=== PATIENT | male | born 1980 | race Caucasian/White ===

== ENCOUNTER 2023-06-23 12:31 | Emergency (ER) | payer MEDICAID, SELFPAY ==
[2023-06-23 12:32] VITALS: BP 115/71; PULSE 85; RESP 17; TEMP 36; O2SAT 100; BMI 30.1
--- NOTE | 2023-06-23 12:56 | RAD_ITS ---
STUDY: X-RAY CHEST REASON FOR EXAM: Male, 42 years old. chest pain TECHNIQUE: Single AP portable view of the chest. COMPARISON: None. FINDINGS: The lungs are clear and expanded. There is no demonstrated pleural abnormality. Normal size heart. Normal mediastinum and saad. Normal visualized pulmonary arteries. Normal visualized aortic arch and descending thoracic aorta. Normal visualized thoracic spine. Normal visualized ribs, clavicles, and shoulders. There is no demonstrated abnormality of the visualized soft tissue structures of the upper abdomen. RAD/Chest 1 View (Portable) IMPRESSION: Normal x-ray examination of the chest. Electronically Signed: Gerardo Persaud MD at 14:21 EST ,
--- NOTE | 2023-06-23 12:56 | EKG12_ITS ---
Test Reason : cp Blood Pressure : / mmHG Vent. Rate : 074 BPM Atrial Rate : 074 BPM P-R Int : 124 ms QRS Dur : 094 ms QT Int : 370 ms P-R-T Axes : 050 051 044 degrees QTc Int : 410 ms Normal sinus rhythm Normal ECG Confirmed by SANDRA MORROW MD ([id number]), market editor DERRICK PICKENS ([id number]) on 06/25/2023 1:16:54 PM Referred By: Margarita Confirmed By:SANDRA MORROW MD
--- NOTE | 2023-06-23 12:58 | EDS_ITS ---
HPI <MAE Brown - Last Filed: 06/23/23 16:10> History of Present Illness Chief Complaint: Chest Pain Narrative Narrative: Patient presenting today with midsternal chest pressure that started this morning. He reports that he has felt short of breath intermittently over the past few weeks and felt short of breath this morning. Nothing seems to worsen the symptoms. He reports that now his symptoms seem to be improving. He did feel little bit nauseous this morning. He denies a cardiac history but reports CAD hx in his father. He reports a history of daily marijuana use and recent methamphetamine use which was injected 3 weeks ago. He denies any recent meth use. He denies any fever, chills, abdominal pain, history of blood clots, recent surgery/procedures/travel/immobilization. PFSH <MAE Brown - Last Filed: 06/23/23 16:10> PFSH Allergy/AdvReac Type Severity Reaction Status Date / Time No Known Allergies Allergy Verified 06/23/23 12:34 Social History Smoking Status: Current every day smoker tobacco type: cigarettes ROS <MAE Brown - Last Filed: 06/23/23 16:10> ROS ED Constitutional Constitutional ED: Denies chills or fever(s) Cardiovascular Cardiovascular: Reports chest pain; Denies palpitations or racing heartbeat Respiratory/Chest Respiratory/Chest: Reports dyspnea; Denies cough or tachypnea Gastrointestinal Gastrointestinal: Reports nausea; Denies abdominal pain or vomiting Musculoskeletal Musculoskeletal: Denies arthralgias or myalgias Integumentary Denies rash Neurologic Neurologic: Denies paresthesias or weakness EXAM <MAE Brown - Last Filed: 06/23/23 16:10> Physical Exam Const Vital Signs: 06/23/23 12:32 06/23/23 13:21 06/23/23 14:32 Temperature 96.8 F L Temperature Source Temporal Pulse Rate 85 67 Respiratory Rate 17 23 H Blood Pressure 115/71 Blood Pressure Mean 85 Pulse Ox 100 Oxygen Delivery Method Room Air Room Air Room Air Positive well nourished, well developed and no apparent distress General Appearance ED: well developed HEENT Reports normocephalic and head/scalp atraumatic Mouth ED: Yes moist mucous membranes normal Eyes PERRL and EOMs intact bilaterally Neck full ROM and supple Chest Wall inspection of chest normal Chest Narrative: Generalized tenderness to palpation along the midsternal chest wall and right and left side. Resp normal respiratory effort and clear to auscultation bilaterally Cardio regular rate and regular rhythm GI soft to palpation, non-tender, non-distended and no masses Back/Spine normal ROM and normal to inspection Extremity normal to inspection and full ROM Neuro oriented x3, CN's II-XII intact bilaterally, moves all extremities, no focal motor deficits and no sensory deficits noted Sensorium / Orientation: awake and alert Psych mental status grossly normal and thought process normal Skin no rashes or lesions noted and no wounds <Dr. Dennys Blackwood DO - Last Filed: 06/23/23 16:36> Physical Exam Const Vital Signs: 06/23/23 12:32 06/23/23 13:21 06/23/23 14:32 Temperature 96.8 F L Temperature Source Temporal Pulse Rate 85 67 Respiratory Rate 17 23 H Blood Pressure 115/71 Blood Pressure Mean 85 Pulse Ox 100 Oxygen Delivery Method Room Air Room Air Room Air <MAE Brown - Last Filed: 06/23/23 16:10> Heart Score Troponin: </= Normal Limit Score: 1 <Dr. Dennys Blackwood DO - Last Filed: 06/23/23 16:36> Heart Score History: Slightly/Non-Suspicious ECG: Normal Age: </= 46 years Risk Factors: 1 or 2 Risk Factors Score: 1 MDM <MAE Brown - Last Filed: 06/23/23 16:10> [facility] Narrative Medical decision making narrative: Patient presenting due to chest pain and shortness of breath that started this morning. He reports that his symptoms seem to improve once he got here to the ED. Remote history of meth use but states he has not used in the last 3 weeks. He is well-appearing and in no distress are unremarkable. Labs will be obtained to rule out leukocytosis, anemia, electrolyte abnormality, ACS. Patient is PERC negative, low suspicion for PE. Repeat troponin remains unchanged at 4. Labs overall unremarkable, EKG normal sinus rhythm. Chest x-ray negative for any acute cardiopulmonary abnormality. Patient has a low heart score of 1. He does not have a PCP, I will give him a referral for 1 and have encouraged him to follow-up as an outpatient. On reexamination he reports resolution of his symptoms, he is resting comfortably in the bed. He has been given return instructions and will be discharged home in stable condition. He is comfortable with plan. Lab Data Attestation: I reviewed the patient's lab results. Labs: Laboratory Results - last 24 hr 06/23/23 06/23/23 13:10 15:10 WBC 6.7 RBC 4.97 Hgb 14.9 Hct 44.8 MCV 90.1 MCH 30.0 MCHC 33.3 RDW Std Deviation 40.7 RDW Coeff of Solo 12.3 Plt Count 213 MPV 8.7 Immature Gran % (Auto) 0.900 Neut % (Auto) 66.3 Lymph % (Auto) 21.5 [place] % (Auto) 8.1 Eos % (Auto) 1.8 Baso % (Auto) 1.4 H Absolute Neuts (auto) 4.4 Absolute Lymphs (auto) 1.43 Nucleated RBC % 0 Sodium 141 Potassium 4.2 Chloride 110 H Carbon Dioxide 27.0 Anion Gap 4 L BUN 13 Creatinine 0.76 Estim Creat Clear Calc 132.07 Est GFR (MDRD) Af Amer 144 Est GFR (MDRD) Non-Af 119 BUN/Creatinine Ratio 17.0 Glucose 65 L Calcium 9.7 Troponin I High Sens 4 4 Radiography X-Ray: Read by ED Physician and Read by Radiologist Diagnostic Testing: Clinical Impression(s) from Imaging Studies Chest X-Ray 06/23/23 12:56 IMPRESSION: Normal x-ray examination of the chest. Electronically Signed: Gerardo Persaud MD at 14:21 EST , EKG Initial EKG: Comments: 74 bpm, normal sinus rhythm, no ST elevation, no signs of cardiac ischemia, reviewed and interpreted by attending ED physician <Dr. Dennys Blackwood, DO - Last Filed: 06/23/23 16:36> [facility] [place] Lab Data Labs: Laboratory Results - last 24 hr 06/23/23 06/23/23 13:10 15:10 WBC 6.7 RBC 4.97 Hgb 14.9 Hct 44.8 MCV 90.1 MCH 30.0 MCHC 33.3 RDW Std Deviation 40.7 RDW Coeff of Solo 12.3 Plt Count 213 MPV 8.7 Immature Gran % (Auto) 0.900 Neut % (Auto) 66.3 Lymph % (Auto) 21.5 [place] % (Auto) 8.1 Eos % (Auto) 1.8 Baso % (Auto) 1.4 H Absolute Neuts (auto) 4.4 Absolute Lymphs (auto) 1.43 Nucleated RBC % 0 Sodium 141 Potassium 4.2 Chloride 110 H Carbon Dioxide 27.0 Anion Gap 4 L BUN 13 Creatinine 0.76 Estim Creat Clear Calc 132.07 Est GFR (MDRD) Af Amer 144 Est GFR (MDRD) Non-Af 119 BUN/Creatinine Ratio 17.0 Glucose 65 L Calcium 9.7 Troponin I High Sens 4 4 Radiography Diagnostic Testing: Clinical Impression(s) from Imaging Studies Chest X-Ray 06/23/23 12:56 IMPRESSION: Normal x-ray examination of the chest. Electronically Signed: Gerardo Persaud MD at 14:21 EST , Treatment and Re-Evaluation :: I have personally performed a face to face assessment of the patient and have reviewed the JULISSA Note. I performed a substantive portion of the visit including all aspects of the following. My garza findings include: History: Patient presents with chest pain that began today. Patient states pain began when he woke up. Patient describes it as sharp and tightness. Patient states it has been constant all day. Patient states his son told him that he passed out. Patient states he was feeling lightheaded but does not think he passed out. Patient admits to some shortness of breath. Patient admits to some nausea but denies any vomiting. Patient admits to some palpitations where he felt like his heart was racing. Patient is a smoker. Patient has a family history of coronary artery disease in his father. Exam: Vital signs are stable. Patient is afebrile. Patient is in no acute distress. Oral mucosa is pink and moist. Neck is supple. Trachea is midline. There is no JVD. Heart was regular rate and rhythm. Lungs are clear and equal bilaterally. Abdomen is soft. Bowel sounds are normal. There is no tenderness. Cranial nerves II through XII are intact. There are no focal motor or sensory deficits noted. Medical Decision Making: Differential diagnosis includes cardiac dysrhythmia, cardiac ischemia, electrolyte abnormality, pneumonia, pneumothorax, musculoskeletal pain, and anxiety. EKG will be obtained to assess for cardiac dysrhythmia and cardiac ischemia. Chest x-ray will be obtained to assess for pneumonia and pneumothorax. CBC will be obtained to assess for leukocytosis and anemia. Basic metabolic profile will be obtained to assess for electrolyte abnormality and renal function. High-sensitivity troponin will be obtained to assess for cardiac ischemia. 2-hour repeat high-sensitivity troponin will be obtained to assess for ongoing cardiac ischemia. Patient was given aspirin here. EKG was obtained. On my independent interpretation, it showed a normal sinus rhythm with a rate of 24. ME interval, QRS interval, and QTc intervals were all normal. Acme was normal. There are no acute ST or T wave changes. Portable 1 view chest x-ray was obtained. On my independent interpretation, lung oliva are clear. There is normal cardiac silhouette. Bony thorax is normal. There is no acute process noted. Radiologist also interpreted the x-ray and agrees. CBC was reviewed and was within normal limits. Basic metabolic profile was reviewed and was within normal limits. High-sensitivity troponin was reviewed and was normal at 4. 2- hour repeat high-sensitivity troponin was reviewed and was normal at 4. Patient was advised of his findings. Patient has a HEART score of 1. Patient was advised that this is low risk for acute cardiac event. Patient was instructed to follow-up with his primary care physician in 5 to 7 days. Patient was instructed return if worse in any way. Patient understood and was agreeable with the plan. All questions were answered. Discharge Plan Triage Chief Complaint: Chest Pain ED Midlevel Provider: Herlinda Arce ED Provider: Dennys Blackwood Dx/Rx/DC Orders Clinical Impression: Chest pain Instructions: ED Chest Pain, Noncardiac Primary Care Provider: Care Physician,No Primary Referrals: Xavi Watters MD [Med Staff - Early Learning Teacher] - 5-7 Days Care Physician,No Primary [Primary Care Provider] - Activity Restrictions/Additional Instructions: Follow-up with your PCP in 5-7 days, I have given you a referral for one if you do not have one. Return for any worsening of your symptoms. Disposition Disposition: Home, Self Care Discharge Date/Time: 06/23/23 16:10
--- NOTE | 2023-06-23 13:05 | NURSING ---
NO OLD EKGS
[2023-06-23] MEDS: Aspirin 81 MG TAB.CHEW 324 MG PO (13:17)
[2023-06-23 13:23] LABS: Absolute Lymphocyte Count 1.43 X10^3/uL (0.83-4.51); Absolute Neutrophil Count 4.4 X10^3/uL (2.0-7.7); Basophil# 0.09 X10^3/uL; Basophil% 1.4 % (0-1); Eosinophil# 0.12 X10^3/uL; Eosinophils% 1.8 % (0-5); Hematocrit 44.8 % (40-54); Hemoglobin 14.9 g/dL (13.0-16.5); Lymphocyte # 1.43 X10^3/ul (0.83-4.51); Lymphocyte % 21.5 % (19-41); Mean Corp Hgb Conc 33.3 g/dL (32-36); Mean Corpuscular Volume 90.1 fL (80-94); Mean Platelet Vol. 8.7 fl (6.2-12.0); Monocyte# 0.54 X10^3/uL; Monocyte% 8.1 % (0-10); NRBC Flagged by Analyzer 0 % (0-5); Neutrophil # 4.42 X10^3/uL (2.7-7.7); Neutrophil % 66.3 % (47-70); Platelet Count 213 K/mm3 (150-450); RBC Distribution Width CV 12.3 % (11.6-14.6); RBC Distribution Width SD 40.7 fl (35.1-43.9); Red Blood Count 4.97 M/mm3 (4.6-6.2); White Blood Count 6.7 K/mm3 (4.4-11.0)
[2023-06-23 13:36] LABS: Anion Gap 4 (5-15); BUN 13 mg/dL (7-18); Calcium,Total 9.7 mg/dL (8.5-10.1); Chloride 110 mmol/L (98-107); Creatinine, Serum 0.76 mg/dL (0.70-1.30); EST Glomerular Filtration Rate 119 mL/min (>60); Est Glom Filt Rate - Afr Amer 144 mL/min (>60); Estimated Creatinine Clearance 132.07 ml/min; Glucose 65 mg/dL (74-106); Potassium 4.2 mmol/L (3.5-5.1); Sodium Level 141 mmol/L (136-145); Troponin-I HS (w/2H Reflex) 4 pg/mL (3.0-78.0)
[2023-06-23 14:32] VITALS: PULSE 67; RESP 23
[2023-06-23 15:14] LABS: Reflex Troponin-HS? (from REC) Y
[2023-06-23 15:38] LABS: Troponin-I HS 4 pg/mL (3.0-78.0)
== END 2023-06-23 16:10 | disposition home or self-care (01) ==
PROVIDERS: Physician Assistant; Emergency Provider Emergency Medicine; Visit Provider Emergency Medicine
DX: R07.9 Chest pain, unspecified (principal); R06.02 Shortness of breath; I25.10 Atherosclerotic heart disease of native coronary artery without angina pectoris; F17.210 Nicotine dependence, cigarettes, uncomplicated
CPT/HCPCS: 71045; 80048; 84484; 85025; 93005; 99283

== ENCOUNTER 2023-08-21 10:32 | Emergency (ER) | payer MEDICAID, SELFPAY ==
[2023-08-21 10:34] VITALS: PULSE 124; RESP 24; TEMP 37.6; O2SAT 94
--- NOTE | 2023-08-21 11:06 | EDS_ITS ---
HPI History of Present Illness Chief Complaint: Substance Abuse Informant: patient Onset/Context/Timing Onset: Days (2) Context: Gradual Onset Timing: Continuous Quality: Week Location: Generalized Worsened by: Nothing Relieved by: Nothing Associated Symptoms Associated Symptoms: Negative for vomiting*, diarrhea*, fever*, rash*, seizure, tremor, palpatations, change in mental status, suicidal ideation or homicidal ideation Narrative Narrative: Patient presents with generalized weakness. Patient states he feels weak all over. Patient states he has a history of using meth and marijuana. Patient states that weakness has been getting worse over the past 2 days. Patient denies any nausea or vomiting. Patient denies any seizures or tremors. Patient denies any suicidal or homicidal ideations. Patient does admit to some pain in his chest and trouble breathing. Patient states he has some chronic pain in his back. Patient denies any fevers or chills. PFSH PFSH Medical History no medical history no medical history Home Medications NK 08/21/23 [History Last Taken Unknown] Allergy/AdvReac Type Severity Reaction Status Date / Time No Known Allergies Allergy Verified 08/21/23 10:34 Surgical History no surgical history no surgical history Social History (Updated 08/21/23 @ 12:[address] Dennys Blackwood, DO) Smoking Status: Current every day smoker tobacco type: cigarettes substance use type: marijuana and methamphetamine ROS ROS ED Constitutional Constitutional ED: Denies chills or fever(s) Eyes Eyes: Denies blurry vision or change in vision ENT ENT ED: Denies rhinorrhea or sore throat Cardiovascular Cardiovascular: Reports chest pain; Denies palpitations Respiratory/Chest Respiratory/Chest: Reports dyspnea; Denies cough Gastrointestinal Gastrointestinal: Denies nausea or vomiting Genitourinary Genitourinary ED: Denies dysuria or hematuria Musculoskeletal Musculoskeletal: Reports back pain; Denies neck pain Integumentary Denies abscess or rash Neurologic Neurologic: Reports weakness; Denies headache(s) Allergic/Immunologic Allergic/Immunologic ED: Denies mouth swelling or urticaria EXAM Physical Exam Const Vital Signs: 08/21/23 10:34 08/21/23 10:57 08/21/23 11:23 Temperature 99.6 F H Temperature Source Temporal Pulse Rate 124 H Respiratory Rate 24 H Respiratory Pattern Tachypnea Blood Pressure 127/80 H Blood Pressure Mean 95 Pulse Ox 94 Oxygen Delivery Method Room Air 08/21/23 12:29 Temperature 100.3 F H Temperature Source Oral Pulse Rate Respiratory Rate Respiratory Pattern Blood Pressure Blood Pressure Mean Pulse Ox Oxygen Delivery Method Positive well nourished and well developed General Appearance ED: well developed and NAD HEENT Reports moist mucous membranes Neck supple and no JVD Resp normal respiratory effort and clear to auscultation bilaterally Cardio regular rate and regular rhythm GI soft to palpation and non-distended Palpation: tender epigastric, LLQ, RLQ, LUQ, RUQ, periumbilical and suprapubic; Negative for guarding Neuro oriented x3, CN's II-XII intact bilaterally and no sensory deficits noted Sandra Coma Scale: document GCS findings Spontaneous Obeys Commands Oriented 15 Sensorium / Orientation: alert Motor Exam: strength 5/5 throughout Psych mental status grossly normal MDM MDM MDM Narrative Medical decision making narrative: Differential diagnosis includes anemia, electrolyte abnormality, dehydration, urinary tract infection, rhabdomyolysis, and methamphetamine withdrawal. CBC will be obtained to assess for leukocytosis and anemia. Basic metabolic profile will be obtained to assess for electrolyte abnormality and renal function. Total CPK will be obtained to assess for rhabdomyolysis. Urinalysis will be obtained to assess for urinary tract infection. Lab Data Attestation: I reviewed the patient's lab results. Lab results narrative: CBC was reviewed and was within normal limits. Basic metabolic profile was reviewed and was within normal limits. Total CPK was reviewed and was normal at 112. Urinalysis was reviewed. There is no evidence of urinary tract infection or hematuria. Labs: Laboratory Results - last 24 hr 08/21/23 08/21/23 12:25 12:45 WBC 4.5 RBC 5.01 Hgb 14.7 Hct 44.1 MCV 88.0 MCH 29.3 MCHC 33.3 RDW Std Deviation 41.2 RDW Coeff of Solo 12.8 Plt Count 247 MPV 8.2 Immature Gran % (Auto) 0.400 Neut % (Auto) 65.6 Lymph % (Auto) 16.1 L [place] % (Auto) 17.2 H Eos % (Auto) 0.0 Baso % (Auto) 0.7 Absolute Neuts (auto) 2.9 Absolute Lymphs (auto) 0.72 L Nucleated RBC % 0 Sodium 130 L Potassium 4.7 Chloride 97 L Carbon Dioxide 26.0 Anion Gap 7 BUN 17 Creatinine 0.94 Estim Creat Clear Calc 106.78 Est GFR (MDRD) Af Amer 113 Est GFR (MDRD) Non-Af 94 BUN/Creatinine Ratio 18.1 Glucose 91 Calcium 9.4 Total Creatine Kinase 112 Urine Color Yellow Urine Clarity Clear Urine pH 6.5 Ur Specific [place] 1.015 Urine Protein 15 H Urine Glucose (UA) Normal Urine Ketones 5 H Urine Occult Blood 150 H Urine Nitrite Negative Urine Bilirubin Negative Urine Urobilinogen 1 H Ur Leukocyte Esterase Negative Urine RBC 0-5 SEEN Urine WBC 0 SEEN Ur Squamous Epith Cells 0 SEEN Urine Bacteria 0 SEEN Urine Mucus 0 SEEN Treatment and Re-Evaluation Narrative: Patient was given IV fluids. Patient given a dose of Tylenol. Patient feels better on reevaluation. Patient was instructed to drink plenty of fluids. Patient was instructed take Tylenol or ibuprofen as needed for pain. Patient was instructed to follow-up with his primary care physician in 5 to 7 days. Patient was also given referral to 180 for follow-up for substance abuse. Patient understood and was agreeable with the plan. All questions were answered. Discharge Plan Triage Chief Complaint: Substance Abuse Other Complaint: General Illness ED Provider: Dennys Blackwood Dx/Rx/DC Orders Clinical Impression: Methamphetamine abuse, Dehydration Instructions: ED Dehydration (Adult), ED Drug Abuse Prescriptions: No Action NK Primary Care Provider: Care Physician,No Primary Referrals: Lucina Trent [Non-Staff] - 5-7 Days Care Physician,No Primary [Primary Care Provider] - [facility] [Non-Staff] - 3-5 Days Disposition Disposition: Home, Self Care
[2023-08-21 11:23] VITALS: BP 127/80
--- OUTSIDE RECORDS SUMMARY | 2023-08-21 12:14 | XMS RPT_ITS | CCD ---
Author Name Unknown Address [address] [place] [address] Organization [facility] Care Team Providers Care Crop Puller Name Role Phone NIMA ALFORD Unavailable Unavailable PHYSICIAN, NONE Unavailable Unavailable Results Test Name Value Interpretation Reference Range Facil ity Encounters Encounter Date Encounter Type Care Provider Facility Start: 12-24-2017 End: 12-24-2017 Emergency department patient visit NIMA Chan GENIERASHI Facil ity:B Payers Date Payer Category Payer Medicaid [id number] Summary Purpose Family History No Family History Records Found Advance Directives No Advanced Directives Records Found Additional Source Comments (unrecognized sect ion and content) No Status Records Found INFORMATION SOURCE (unrecogn ized section and content) FOR RECORDS PERTAINING TO PATIENTS WHO ARE OR HAVE BEEN ENROLLED IN A CHEMICAL DEPENDENCY/SUBSTANCEABUSE PROGRAM, SOME INFORMATION MAY BE OMITTED. This clinical summary was aggregated from multiple sources. Caution should be exercised in using it in the provision of clinical care. This summary normalizes information from multiple sources, and as a consequence, information in this document may materially change the coding, format and clinical context of patient data. In addition, data may be omitted in some cases. CLINICAL DECISIONS SHOULD BE BASED ON THE PRIMARY CLINICAL RECORDS. [employer] provides no warranty or guarantee of the accuracy or completeness of information in this document.
[2023-08-21] MEDS: 0.9% Normal Saline (1000mL) 1,000 ML 1000 ML IV ×2 (12:23→13:48)
[2023-08-21 12:29] VITALS: TEMP 37.9; BMI 25.8
[2023-08-21 12:39] LABS: Absolute Lymphocyte Count 0.72 X10^3/uL (0.83-4.51); Absolute Neutrophil Count 2.9 X10^3/uL (2.0-7.7); Basophil# 0.03 X10^3/uL; Basophil% 0.7 % (0-1); Hematocrit 44.1 % (40-54); Hemoglobin 14.7 g/dL (13.0-16.5); Lymphocyte # 0.72 X10^3/ul (0.83-4.51); Lymphocyte % 16.1 % (19-41); Mean Corp Hgb Conc 33.3 g/dL (32-36); Mean Corpuscular Hgb 29.3 pg (27.0-32.0); Mean Platelet Vol. 8.2 fl (6.2-12.0); Monocyte# 0.77 X10^3/uL; Monocyte% 17.2 % (0-10); NRBC Flagged by Analyzer 0 % (0-5); Neutrophil # 2.93 X10^3/uL (2.7-7.7); Neutrophil % 65.6 % (47-70); Platelet Count 247 K/mm3 (150-450); RBC Distribution Width CV 12.8 % (11.6-14.6); RBC Distribution Width SD 41.2 fl (35.1-43.9); Red Blood Count 5.01 M/mm3 (4.6-6.2); White Blood Count 4.5 K/mm3 (4.4-11.0)
[2023-08-21 12:54] LABS: Bacteria 0 SEEN /hpf (None Seen); Mucous, Urine 0 SEEN /hpf (<or=2+); Squamous Epithelial Cells - UA 0 SEEN /hpf (0-5); White Blood Cells 0 SEEN /hpf (0-5)
[2023-08-21 12:56] LABS: Anion Gap 7 (5-15); BUN 17 mg/dL (7-18); BUN/Creat Ratio 18.1 RATIO (10-20); CPK Total, Creatine Kinase 112 U/L (39-308); Calcium,Total 9.4 mg/dL (8.5-10.1); Chloride 97 mmol/L (98-107); Creatinine, Serum 0.94 mg/dL (0.70-1.30); EST Glomerular Filtration Rate 94 mL/min (>60); Est Glom Filt Rate - Afr Amer 113 mL/min (>60); Estimated Creatinine Clearance 106.78 ml/min; Glucose 91 mg/dL (74-106); Potassium 4.7 mmol/L (3.5-5.1); Sodium Level 130 mmol/L (136-145)
[2023-08-21 13:01] LABS: Color, Urine Yellow (Yellow); Glucose, Dipstick Normal (Normal); Ketone-Dipstick 5 mg/dl (Negative); Leukocyte Esterase-Dipstick Negative /ul (Negative); Nitrite-Dipstick Negative (Negative); Occult Blood-Urine 150 /ul (Negative); Protein-Dipstick 15 mg/dl (Negative); Specific Gravity, Urine 1.015 (1.002-1.030); Urine Bilirubin Dipstick Negative (Negative); Urine Clarity Clear (Clear); Urine Urobilinogen 1 mg/dl (Normal); Urine pH 6.5 (5.0 - 8.0)
--- NOTE | 2023-08-21 13:02 | ED.RN ---
Pt agitated and restless, yelling, cursing. When asked what's wrong, pt states I don't know , pt reminded to use appropriate language if yelling loudly. Pt voices understanding.
--- NOTE | 2023-08-21 13:08 | ED.RN ---
Pt refuses to leave blood pressure cuff and pulse ox on, takes them off and throws on the floor.
[2023-08-21 13:11] LABS: Red Blood Cells-Urine 0-5 SEEN /hpf (0-5)
[2023-08-21] MEDS: Acetaminophen 500 MG Tablet 1000 MG PO (14:58)
[2023-08-21 15:00] VITALS: BP 128/74; PULSE 78; RESP 18; TEMP 37.2; O2SAT 99
== END 2023-08-21 15:01 | disposition home or self-care (01) ==
PROVIDERS: Emergency Provider Emergency Medicine; Visit Provider Emergency Medicine
DX: F15.10 Other stimulant abuse, uncomplicated (principal); E86.0 Dehydration; M54.9 Dorsalgia, unspecified; F17.210 Nicotine dependence, cigarettes, uncomplicated; R07.9 Chest pain, unspecified; R06.00 Dyspnea, unspecified; G89.29 Other chronic pain
CPT/HCPCS: 80048; 81001; 82550; 85025; 96360; 96361; 99284; J7030; A4216

== ENCOUNTER 2024-04-11 23:35 | Emergency (ER) | payer MEDICAID, SELFPAY ==
[2024-04-11 23:40] VITALS: BP 104/65; PULSE 80; RESP 16; TEMP 36.6; BMI 27.8
[2024-04-11 23:46] VITALS: PULSE 93; O2SAT 98
[2024-04-12] MEDS: Naloxone 2 MG/2 ML Syringe IV ×2 (00:08→00:09)
--- NOTE | 2024-04-12 00:27 | EKG12_ITS ---
Test Reason : NAUSEA V Blood Pressure : / mmHG Vent. Rate : 079 BPM Atrial Rate : 079 BPM P-R Int : 136 ms QRS Dur : 106 ms QT Int : 408 ms P-R-T Axes : 071 054 041 degrees QTc Int : 467 ms Normal sinus rhythm Incomplete right bundle branch block Borderline ECG Confirmed by ODALYS AUGUSTE, SANDRA ([id number]), editorial writer DIANE LARIOS ([id number]) on 04/15/2024 10:06:40 AM Referred By: NAHUM Confirmed By:SANDRA MORROW MD
--- NOTE | 2024-04-12 00:28 | CT_ITS ---
INDICATION: Trauma EXAMINATION: CT CERVICAL SPINE - CT Spine Cervical W/O Contrast Injection TECHNIQUE: Helically acquired images were obtained of the cervical spine. 2D reformatted images were reviewed. A radiation dose optimization technique was used for this scan. IV Contrast dosage and agent: None. COMPARISON: None. FINDINGS: VERTEBRAE: No fracture or acute compression deformity. No discrete lytic or blastic abnormality. Normal alignment. Normal craniocervical junction and cervicothoracic junction. Mild anterior bridging osteophytes in the lower cervical spine. DISCS and SPINAL CANAL: Slight posterior disc osteophyte complex C5-C6 without significant spinal canal or neural foraminal stenosis. No critical stenosis. NECK SOFT TISSUES: No prevertebral soft tissue swelling. There is no cervical adenopathy. LUNG APICES: Clear. CT/Spine Cervical without Contras IMPRESSION: No evidence of acute cervical spinal fracture or spondylolisthesis. Electronically Signed: Santos Christensen MD at 2:41 EDT ,
--- NOTE | 2024-04-12 00:28 | CT_ITS ---
STUDY: CT CHEST, ABDOMEN T PELVIS WITH CONTRAST REASON FOR EXAM: Male, 43 years old. Trauma -- TRAUMA ONLY: IV Contrast. Dont wait for creatinine RADIATION DOSAGE (If Supplied By Facility): CTDIvol = ( 24.12 ) mGy, DLP = ( 2128.76 ) mGycm TECHNIQUE: Transaxial imaging was performed following intravenous administration of IV 100mL Isovue-370. Individualized dose optimization techniques were used for this CT. COMPARISON: No relevant priors. FINDINGS: CHEST Unremarkable thyroid. No retrosternal hematoma. No cardiomegaly or pericardial effusion. No densely calcified coronary atherosclerosis. Unremarkable esophagus. Unremarkable pulmonary outflow track for nonangiogram exam. No aortic dissection or aneurysmal dilatation. Minimal bilateral apical paraseptal edematous change. No airspace consolidation, contusion, effusion, or pneumothorax. Mild dependent atelectasis. ABDOMEN PELVIS No evidence of acute injury of the liver, spleen, adrenals, pancreas, kidneys. Left renal indeterminate density 1.6 cm lesion, axial image 47. Unremarkable gallbladder. Aortic atherosclerosis without ectasia. No acute gastric finding. No small bowel distention or focal wall thickening. Normal appendix. Moderate colonic stool burden. Bladder well filled without wall thickening or surrounding inflammation. MUSCULOSKELETAL No superficial soft tissue hematoma.. No acute osseous finding. CT/CT Chest, Abd, Pel w/Contrast IMPRESSION: No CT evidence of acute injury within the chest abdomen or pelvis. Moderate colonic stool. Electronically Signed: Santos Christensen MD at 2:53 EDT ,
--- NOTE | 2024-04-12 00:28 | CT_ITS ---
INDICATION: Trauma EXAMINATION: CT BRAIN - CT Head or Brain W/O Contrast Injection TECHNIQUE: Multiple axial images were obtained of the head without intravenous contrast. A radiation dose optimization technique was used for this scan. IV Contrast dosage and agent: None. COMPARISON: None FINDINGS: BRAIN PARENCHYMA: No intra- or extra-axial hemorrhage. No evidence of acute infarct. No intracranial mass or mass effect. Unremarkable white matter for age. There is preservation of the [place]/white matter interface. Posterior fossa structures are unremarkable. CSF SPACES: Cerebral volume appropriate for age. No hydrocephalus. Basal cisterns are patent. CALVARIUM, SKULL BASE, PARANASAL SINUSES AND MASTOID AIR CELLS: No acute osseous finding. Mild scattered paransal sinus mucoperisteal thickening. Mastoid air cells are clear. ORBITS: Both globes, extraocular muscles, optic nerves and retrobulbar fat appear unremarkable. ASPECTS Score for Acute Strokes: 10 CT/Brain/Head without Contrast IMPRESSION: No CT evidence of acute intracranial hemorrhage or injury Mild sinus disease. Electronically Signed: Santos Christensen MD at 2:26 EDT ,
--- NOTE | 2024-04-12 00:29 | ED.RN ---
Upon assessment, patient is laying on the bed with his eyes closed. When this RN attempted to reorient the patient, the patient just lays there. When attempting to start an IV on the patient to obtain blood work, patient became combative and was grabbing at his arms. When attempting to straight cath for a toxicology and UA, patient became very combative and tensed up; unable to obtain urine at this time. When this RN attempted to complete the required oliva, the patient was able to respond to yes or no questions. The patient's sister called in to the hospital, this RN got verbal confirmation from the patient that this RN was allowed to talk with the patient's sister. The patient's sister informed this RN that the patient frequently uses illegal substances but does not know what he would have taken today. The patient's son came to visit the patient and the patient responded immediately by turning his head and opening his eyes to the patient's son calling him dad. However, the patient refuses to open his eyes for hospital staff without the use of noxious stimulation. MD stone.
[2024-04-12] MEDS: 0.9% Normal Saline (1000mL) 1,000 ML 999 ML IV (00:41)
[2024-04-12] MEDS: Ondansetron 4 MG/2 ML Vial IV (00:42)
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
[2024-04-12 00:54] LABS: Alcohol, Blood (Medical)-Serum < 3.0 mg/dL
[2024-04-12 00:57] LABS: Absolute Lymphocyte Count 1.03 X10^3/uL (0.83-4.51); Absolute Neutrophil Count 3.9 X10^3/uL (2.0-7.7); Basophil# 0.04 X10^3/uL; Basophil% 0.7 % (0-1); Eosinophil# 0.08 X10^3/uL; Eosinophils% 1.4 % (0-5); Hematocrit 37.6 % (40-54); Hemoglobin 12.3 g/dL (13.0-16.5); Lymphocyte # 1.03 X10^3/ul (0.83-4.51); Lymphocyte % 18.5 % (19-41); Mean Corp Hgb Conc 32.7 g/dL (32-36); Mean Corpuscular Hgb 29.9 pg (27.0-32.0); Mean Corpuscular Volume 91.5 fL (80-94); Mean Platelet Vol. 8.7 fl (6.2-12.0); Monocyte# 0.53 X10^3/uL; Monocyte% 9.5 % (0-10); NRBC Flagged by Analyzer 0 % (0-5); Neutrophil # 3.87 X10^3/uL (2.7-7.7); Neutrophil % 69.4 % (47-70); Platelet Count 220 K/mm3 (150-450); RBC Distribution Width CV 12.2 % (11.6-14.6); RBC Distribution Width SD 40.8 fl (35.1-43.9); Red Blood Count 4.11 M/mm3 (4.6-6.2); White Blood Count 5.6 K/mm3 (4.4-11.0)
[2024-04-12 00:59] LABS: ALB/GLOB Ratio 0.9 RATIO (0.9-2.4); AST(SGOT) 18 U/L (15-37); Alanine Aminotransfer ALT/SGPT 23 U/L (16-61); Albumin, Serum 3.1 g/dL (3.2-5.0); Alkaline Phosphatase 91 U/L (45-117); Anion Gap 3 (5-15); BUN 14 mg/dL (7-18); BUN/Creat Ratio 17.1 RATIO (10-20); Calcium,Total 8.7 mg/dL (8.5-10.1); Chloride 107 mmol/L (98-107); Creatinine, Serum 0.82 mg/dL (0.70-1.30); EST Glomerular Filtration Rate 110 mL/min (>60); Est Glom Filt Rate - Afr Amer 133 mL/min (>60); Globulin 3.6 g/dL (2.2-4.2); Glucose 109 mg/dL (74-106); Lipase 19 U/L (13-75); Potassium 3.9 mmol/L (3.5-5.1); Protein, Total 6.7 g/dL (6.4-8.2); Sodium Level 140 mmol/L (136-145); Troponin-I HS 4 pg/mL (3.0-78.0)
[2024-04-12 01:01] LABS: International Normalized Ratio 1.1; Partial Thromboplast Time 25.9 Seconds (24.1-36.2); Prothrombin Time (Protime)PT. 14.1 SECONDS (11.7-14.9)
[2024-04-12 01:39] VITALS: BP 112/69; PULSE 83; RESP 15; O2SAT 98
--- NOTE | 2024-04-12 02:11 | ED.RN ---
Sister Octavia called and left number [phone]
[2024-04-12 02:34] LABS: Bacteria 0 SEEN /hpf (None Seen); Color, Urine Yellow (Yellow); Glucose, Dipstick Normal (Normal); Ketone-Dipstick Negative (Negative); Leukocyte Esterase-Dipstick 25 /ul (Negative); Mucous, Urine 0 SEEN /hpf (<or=2+); Nitrite-Dipstick Negative (Negative); Occult Blood-Urine Negative /ul (Negative); Protein-Dipstick Negative (Negative); Red Blood Cells-Urine 0 SEEN /hpf (0-5); Urine Bilirubin Dipstick Negative (Negative); Urine Clarity Clear (Clear); Urine Urobilinogen Normal (Normal); Urine pH 6.5 (5.0 - 8.0); White Blood Cells 0 SEEN /hpf (0-5)
[2024-04-12 02:41] LABS: Squamous Epithelial Cells - UA 0-5 SEEN /hpf (0-5)
[2024-04-12 02:55] LABS: Amphetamine Urine VISTA POSITIVE (<1000 ng/mL); Barbiturate Urine VISTA NEGATIVE (< 200 ng/mL); Benzodiazepine Urine VISTA NEGATIVE (< 200 ng/mL); Cocaine Urine VISTA NEGATIVE (< 300 ng/mL); Ecstacy Urine VISTA POSITIVE (< 500 ng/mL); Methadone Urine VISTA NEGATIVE (< 300 ng/mL); PCP Urine VISTA NEGATIVE (< 25 ng/mL); THC Urine VISTA POSITIVE (< 50 ng/mL); Vista UDS pH Range 7
[2024-04-12 03:00] VITALS: BP 115/72; PULSE 67; RESP 14; O2SAT 96
[2024-04-12 04:34] VITALS: BP 121/77; PULSE 97; RESP 16; TEMP 36.4; O2SAT 97
== END 2024-04-12 04:44 | disposition home or self-care (01) ==
PROVIDERS: Emergency Provider Surgery; Visit Provider Surgery
DX: F19.19 Other psychoactive substance abuse with unspecified psychoactive substance-induced disorder (principal); Z59.00 Homelessness unspecified; R11.2 Nausea with vomiting, unspecified; R40.0 Somnolence; D64.9 Anemia, unspecified; F17.210 Nicotine dependence, cigarettes, uncomplicated
CPT/HCPCS: 70450; 71260; 72125; 74177; 80053; 80307; 81001; 82077; 83690; 84484; 85025; 85610; 85730; 93005; 96361; 96374; 96375; 96376; 99283; J7030; Q9967; A4216; J2405